=== PATIENT | male | born 1970 | race Caucasian/White ===

== ENCOUNTER 2016-10-27 06:42 | Emergency (ER) | payer OTHER ==
[2016-10-27 07:10] VITALS: BP 130/85
--- NOTE | 2016-10-27 18:05 | ED ---
Dharmesh Lindsey Benjamin, scribed for Freddie Germain MD on 10/27/16 at 0734 . Back Pain - HPI Summary HPI Summary: Pt describes a shooting pain that radiates down to legs, and that pain worsens when pt gets up and down. Pain is worse when pt is sitting down than standing up. Pt also reports some numbness in his left groin, and when pt lifts in left leg, pt experiences an intense shooting pain in his left lower back. Denies any urinary or bowel incontinence. Pt has been taking anti-inflammatory drugs for his pain. Pt is now in the progress of evaluating his condition with his PCP. - History of Current Complaint Chief Complaint: EDBackInjuryPain Stated Complaint: LOWER BACK PAIN Time Seen by Provider: 10/27/16 07:18 Hx Obtained From: Patient Onset/Duration: Sudden Onset, Lasting Days, Still Present, Worse Since - progressively worsening Onset/Duration: Started Days Ago Timing: Constant Back Pain Location: Is Discrete @ - left lower back Severity Initially: Moderate Severity Currently: Severe Pain Intensity: 8 Pain Scale Used: 0-10 Numeric Character: Sharp Aggravating Symptom(s): Movement Alleviating Symptom(s): OTC Meds Associated Signs And Symptoms: Positive: Numbness - left groin. Negative: Bladder Incontinence, Bowel Incontinence - Allergies/Home Medications Allergies/Adverse Reactions: Allergies Allergy/AdvReac Type Severity Reaction Status Date / Time No Known Allergies Allergy Verified 10/27/16 06:55 PMH/Surg Hx/FS Hx/Imm Hx Endocrine/Hematology History: Reports: Hx Diabetes - DM2 Musculoskeletal History: Reports: Hx Back Problems Infectious Disease History: No Infectious Disease History: Denies: Traveled Outside the [place] in Last 30 Days - Family History Known Family History: Positive: Diabetes - DM2 Negative: Cardiac Disease, Hypertension - Social History Occupation: Employed Full-time Lives: Alone Alcohol Use: Occasionally Substance Use Type: Reports: None Smoking Status (MU): Never Smoked Tobacco Review of Systems Constitutional: Negative Eyes: Negative ENT: Negative Cardiovascular: Negative Respiratory: Negative Gastrointestinal: Negative Genitourinary: Negative Positive: Myalgia - left lower back pain Skin: Negative Positive: Numbness - left groin Psychological: Normal All Other Systems Reviewed And Are Negative: Yes Physical Exam Triage Information Reviewed: Yes Vital Signs On Initial Exam: Initial Vitals Temp Pulse Resp BP Pulse Ox 97.9 F 74 18 140/91 97 10/27/16 06:49 10/27/16 06:49 10/27/16 06:49 10/27/16 06:49 10/27/16 06:49 Vital Signs Reviewed: Yes Appearance: Positive: Well-Appearing, Well-Nourished, Pain Distress - mild Skin: Positive: Warm, Skin Color Reflects Adequate Perfusion, Dry Head/Face: Positive: Normal Head/Face Inspection Eyes: Positive: EOMI, MICKI ENT: Positive: Normal ENT inspection, Hearing grossly normal Neck: Positive: Supple, Nontender Respiratory/Lung Sounds: Positive: Clear to Auscultation, Breath Sounds Present Cardiovascular: Positive: RRR, Pulses are Symmetrical in both Upper and Lower Extremities Abdomen Description: Positive: Nontender, No Organomegaly, Soft Bowel Sounds: Positive: Present Musculoskeletal: Positive: Strength/ROM Intact Neurological: Positive: Sensory/Motor Intact, Alert, Oriented to Person Place, Time, Other - positive straight rasie, left leg - [place] Coma Scale Coma Scale Total: 15 Diagnostics - Vital Signs Vital Signs Temp Pulse Resp BP Pulse Ox 10/27/16 07:10 66 99 10/27/16 07:08 130/85 10/27/16 06:50 97.9 F 74 18 140/91 97 10/27/16 06:49 97.9 F 74 18 140/91 97 - Laboratory Lab Statement: Any lab studies that have been ordered have been reviewed, and results considered in the medical decision making process. Back Pain Course/Dx - Course Course Of Treatment: Reviewed pts medication and allergy lists. Blood pressure noted. Assessment/Plan: Mr. Yuen presented with a flair up of chronic low back pain. He was neurologically intact and was given ativan as a muscle relaxer and recommended F/U for PT referral if needed. - Diagnoses Provider Diagnoses: Acute exacerbation of chronic low back pain Discharge - Discharge Plan Condition: Stable Disposition: HOME Prescriptions: LORazepam TAB(*) [Ativan TAB(*)] 1 mg PO Q6H PRN #20 tab MDD 4 PRN Reason: Pain Patient Education Materials: Low Back Strain (ED) Additional Instructions: PLEASE FOLLOW UP WITH YOUR PRIMARY CARE PROVIDER. The documentation as recorded by the Dharmesh love Benjamin accurately reflects the service I personally performed and the decisions made by me, Freddie Germain MD.
== END 2016-10-27 07:52 | disposition home or self-care (01) ==
LOC: ED 06:42
DX: M54.5 Low back pain (principal); G89.29 Other chronic pain; E11.9 Type 2 diabetes mellitus without complications
CPT/HCPCS: 99282